=== PATIENT | female | born 1945 | race Caucasian/White ===

== ENCOUNTER → 2016-09-28 | Outpatient (CLI) | payer MEDICARE, OTHER | LOC: RAD 08:00 | PROC: 3E0U3GC Introduction of Other Therapeutic Substance into Joints, Percutaneous Approach (ICD-10-PCS; principal; 2016-09-28) | DX: M25.552 Pain in left hip (principal) | CPT/HCPCS: J3301; Q9962 ==

== ENCOUNTER → 2021-09-14 | Outpatient (CLI) | payer MEDICARE ==
[~2021-09-14] MED LIST: AMBIEN10 MG PO; COLACE 100MG C100 MG PO; ELIQUIS2.5 MG PO; ENDOCET 10-3251 EACH PO; HYDRALAZINE HCL50 MG PO; LYRICA75 MG PO; NORCO 10-325 T1 EACH PO; PROCARDIA XL60 MG PO; SYNTHROID137 MCG PO
== END ==
LOC: KOH-I 09-08 08:15
DX: M25.551 Pain in right hip (principal); M16.11 Unilateral primary osteoarthritis, right hip; M70.71 Other bursitis of hip, right hip
CPT/HCPCS: 73721